=== PATIENT | female | born 1965 | race Caucasian/White ===

== ENCOUNTER 2022-04-01 12:24 | Emergency (ER) | payer MEDICAID ==
[~2022-04-01] VITALS: Ht 167.6 cm; Wt 75.0 kg
[2022-04-01 15:56] LABS: HEMATOCRIT. 43.8 % (36.0-48.0); HEMOGLOBIN. 14.7 g/dL (12.0-16.0); MEAN CORPUSCULAR HEMOGLOBIN 28.3 pg (28.0-32.0); MEAN CORPUSCULAR VOLUME 84.2 fL (81.0-99.0); MEAN PLATELET VOLUME 8.9 fl (7.4-10.4); PLATELET 339 x1000/uL (130-400); RED CELL DISTRIBUTION WIDTH 14.9 % (11.6-14.6)
[2022-04-01 15:59] LABS: CHLORIDE 106 mEq/L (98-107)
[2022-04-01] MEDS ORDERED: PREDNISONE 20MG TABLET PO STA (16:17)
[2022-04-01] MEDS ORDERED: ALBUTEROL (0.083%) 2.5MG/3ML NEB HHN STA ×2 (16:17→18:22)
[2022-04-01] MEDS ORDERED: IPRATROPIUM BROMIDE (0.02%) 0.5MG/2.5ML NEB HHN STA ×2 (16:17→18:22)
[2022-04-01] MEDS ORDERED: P20 MT (16:55)
[2022-04-01] MEDS ORDERED: BENZ100C86 MT (16:55)
[2022-04-01] MEDS ORDERED: ALBU6.7H3 INH (16:55)
[2022-04-01 17:49] LABS: PLATELET ESTIMATE NORMAL
[2022-04-01 19:21] VITALS: BP 166/100
== END 2022-04-01 20:30 | disposition home or self-care (01) ==
LOC: ER 12:24
DX: R05.9 Cough, unspecified (principal); R07.89 Other chest pain; R09.81 Nasal congestion; I10 Essential (primary) hypertension
CPT/HCPCS: 36415; 71045; 80053; 83880; 84484; 85025; 94640; 99284; J7512; Z7610